=== PATIENT | female | born 1950 | race Hispanic/Latino ===

== ENCOUNTER 2022-04-22 09:43 | Emergency (ER) | payer MEDICARE ==
[~2022-04-22] VITALS: Ht 162.6 cm; Wt 107.0 kg
[~2022-04-22 09:43] MED LIST: SODIUM CHLORIDE 0.9% 1000ML 1,000 ML IV SCH
[2022-04-22] MEDS ORDERED: DIATRIZOATE MEGL/DIATRIZOA SOD 30 ML BTL PO ONE (10:25)
[2022-04-22 10:28] LABS: INR 0.94; PROTHROMBIN TIME 13.4 seconds (11.9-14.5)
[2022-04-22 10:33] LABS: CLARITY,URINE CLEAR (CLEAR); COLOR,URINE YELLOW (YELLOW)
[2022-04-22 10:34] LABS: KETONES,URINE NEGATIVE (NEGATIVE); LEUKOCYTE ESTERASE ,URINE NEGATIVE (NEGATIVE); NITRITE,URINE NEGATIVE (NEGATIVE); PROTEIN,URINE DIPSTICK NEGATIVE (NEGATIVE); URINE UROBILINOGEN 0.2 mg/dL (0.2 - 1)
[2022-04-22 10:38] LABS: BASOPHILS # (AUTO) 0.1 (0.0-0.1); BASOPHILS % 0.5 % (0.0-1.0); EOSINOPHILS # (AUTO) 0.2 (0.0-0.4); EOSINOPHILS % 1.5 % (0.0-6.0); HEMOGLOBIN 14.6 g/dL (12.0-16.0); LYMPHOCYTES # (AUTO) 3.7 (1.0-3.2); LYMPHOCYTES % 31.6 % (18.0-39.1); MEAN CORPUSCULAR HEMOGLOBIN 27.8 pg (28-32); MEAN CORPUSCULAR HGB CONC 31.1 g/dL (31-35); MEAN CORPUSCULAR VOLUME 89.4 fL (81-99); MONOCYTES # (AUTO) 0.8 (0.2-0.8); MONOCYTES % 6.8 % (4.4-11.3); NEUTROPHILS # (AUTO) 6.9 (2.1-6.9); NEUTROPHILS % 59.2 % (38.7-80.0); PLATELET COUNT 237 x10e3/uL (140-360); RED BLOOD COUNT 5.26 x10e6/uL (3.6-5.1); RED CELL DISTRIBUTION WIDTH 13.7 % (11.7-14.4)
[2022-04-22 10:39] LABS: ALBUMIN 4.2 g/dL (3.5-5.0); ALBUMIN/GLOBULIN RATIO 1.2 (0.8-2.0); ANION GAP 18.5 mmol/L (8-16); CALCIUM 9.8 mg/dL (8.4-10.2); CREATININE, SERUM 0.82 mg/dL (0.57-1.11); POTASSIUM 4.5 mmol/L (3.5-5.1)
[2022-04-22 11:04] LABS: BACTERIA,URINE MODERATE /HPF; EPITHELIAL CELLS,URINE MANY /LPF; RBC,URINE 0-5 /HPF (0-5); WBC,URINE (MAN) 0-5 /HPF (0-5)
[2022-04-22 11:11] LABS: YEAST,URINE FEW
[2022-04-22] MEDS ORDERED: DICYCLOMINE HCL20 MG PO (12:02)
[2022-04-22] MEDS ORDERED: MIRALAX17 GM PO (12:05)
[2022-04-22] MEDS ORDERED: ONDANSETRON ODT4 MG PO (12:05)
[2022-04-22] MEDS ORDERED: DOCUSATE SODIU100 MG PO (12:05)
[2022-04-22] MEDS ORDERED: DIFLUCAN150 MG PO (12:07)
[2022-04-22 12:33] VITALS: BP 120/69
== END 2022-04-22 12:20 | disposition home or self-care (01) ==
LOC: ER 09:51
DX: R10.30 Lower abdominal pain, unspecified (principal); K59.00 Constipation, unspecified; B37.89 Other sites of candidiasis; K64.9 Unspecified hemorrhoids; I10 Essential (primary) hypertension; E11.9 Type 2 diabetes mellitus without complications
CPT/HCPCS: 36415; 74176; 80053; 81001; 83690; 85025; 85610; 99284; Q9963

== ENCOUNTER → 2022-11-05 | Outpatient (CLI) | payer MEDICARE ==
[~2022-11-05] MED LIST changes: +DICYCLOMINE HCL20 MG PO; +DIFLUCAN150 MG PO; +DOCUSATE SODIU100 MG PO; +MIRALAX17 GM PO; +ONDANSETRON ODT4 MG PO; -SODIUM CHLORIDE 0.9% 1000ML 1,000 ML IV SCH
== END ==
LOC: MAMMO 09:47
PROVIDERS: ATTEND Family Medicine
DX: R92.8 Other abnormal and inconclusive findings on diagnostic imaging of breast (principal)

== ENCOUNTER → 2024-02-16 | Day surgery (SDC) | payer MEDICARE ==
[2024-02-10 15:26] LABS: BASOPHILS % 0.4 % (0.0-1.0); EOSINOPHILS # (AUTO) 0.1 (0.0-0.4); EOSINOPHILS % 1.2 % (0.0-6.0); HEMATOCRIT 44.5 % (34.2-44.1); LYMPHOCYTES # (AUTO) 2.9 (1.0-3.2); MEAN CORPUSCULAR HGB CONC 31.5 g/dL (31-35); MONOCYTES # (AUTO) 0.9 (0.2-0.8); MONOCYTES % 7.6 % (4.4-11.3); NEUTROPHILS # (AUTO) 7.2 (2.1-6.9); NEUTROPHILS % 64.4 % (38.7-80.0); PLATELET COUNT 211 x10e3/uL (140-360); RED CELL DISTRIBUTION WIDTH 14.2 % (11.7-14.4); WHITE BLOOD COUNT 11.21 x10e3/uL (4.8-10.8)
[2024-02-10 15:48] LABS: ANION GAP 14.5 mmol/L (8-16); CALCIUM 10.1 mg/dL (8.4-10.2); CREATININE, SERUM 0.93 mg/dL (0.57-1.11); POTASSIUM 4.5 mmol/L (3.5-5.1)
[~2024-02-16] MED LIST changes: +ACETAMINOPHEN 1000 MG/100 ML 100 ML IV ONE; +BENICAR HCT 201 EACH; +CRESTOR40 MG; +EPHEDRINE SULFATE INJ 50 MG/ML VIAL ONE; +FENTANYL CITRATE/PF 100MCG/2 ML INJ ONE; +GLYCOPYRROLATE INJ 0.2 MG/ML VIAL ONE; +JARDIANCE10 MG PO; +KETOROLAC TROMETHAMINE 30 MG/ML VIAL ONE; +LIDOCAINE HCL 2% LOCAL INJ 5 ML SDV VIAL INJ ONE; +METAMUCIL FIBE3.4 GM PO; +METOCLOPRAMIDE HCL 10 MG/2ML VIAL ONE; +MIDAZOLAM HCL 2 MG/2 ML VIAL ONE; +OMEGA 3 1,0001 EACH PO; +ONDANSETRON HCL INJ 2MG/ML 2ML 2 MG/ML VIAL ONE; +PROPOFOL IV EMULSION 10 MG/ML 20 ML VIAL ONE; +PROTONIX20 MG PO; +SEVOFLURANE INHAL SOLN 250 ML PEN BTL ONE; +TYLENOL325 MG PO; +VITAMIN D31 ML
[2024-02-16] MEDS: LACTATED RINGER'S 1,000 ML ONE (06:13)
[2024-02-16 09:00] VITALS: TEMP 98.5
[2024-02-16] MEDS: ACETAMINOPHEN 1000 MG/100 ML IV ONE (09:38)
[2024-02-16 09:50] VITALS: BP 113/61; PULSE 74; RESP 14; O2SAT 96
== END | disposition home or self-care (01) ==
LOC: OR 05:28
PROVIDERS: ATTEND Obstetrics & Gynecology
DX: N84.0 Polyp of corpus uteri (principal); R93.89 Abnormal findings on diagnostic imaging of other specified body structures; E11.9 Type 2 diabetes mellitus without complications; I10 Essential (primary) hypertension; E78.5 Hyperlipidemia, unspecified; K29.70 Gastritis, unspecified, without bleeding; M54.30 Sciatica, unspecified side; G89.29 Other chronic pain; Z01.810 Encounter for preprocedural cardiovascular examination; Z01.812 Encounter for preprocedural laboratory examination; Z01.818 Encounter for other preprocedural examination; Z79.899 Other long term (current) drug therapy
CPT/HCPCS: 36415; 58558; 71046; 80048; 85025; 88305; 93005; J0131; J1885; J2001; J2250; J2405; J2704; J2765; J3010; J7121

== ENCOUNTER 2024-07-27 13:55 | Emergency (ER) | payer MEDICARE ==
[~2024-07-27] VITALS: Ht 162.6 cm; Wt 104.3 kg
[~2024-07-27 13:55] MED LIST changes: -ACETAMINOPHEN 1000 MG/100 ML 100 ML IV ONE; -EPHEDRINE SULFATE INJ 50 MG/ML VIAL ONE; -FENTANYL CITRATE/PF 100MCG/2 ML INJ ONE; -GLYCOPYRROLATE INJ 0.2 MG/ML VIAL ONE; -KETOROLAC TROMETHAMINE 30 MG/ML VIAL ONE; -LIDOCAINE HCL 2% LOCAL INJ 5 ML SDV VIAL INJ ONE; -METOCLOPRAMIDE HCL 10 MG/2ML VIAL ONE; -MIDAZOLAM HCL 2 MG/2 ML VIAL ONE; -ONDANSETRON HCL INJ 2MG/ML 2ML 2 MG/ML VIAL ONE; -PROPOFOL IV EMULSION 10 MG/ML 20 ML VIAL ONE; -SEVOFLURANE INHAL SOLN 250 ML PEN BTL ONE
[2024-07-27 14:23] VITALS: PULSE 82; RESP 18; TEMP 98.3
[2024-07-27 15:31] LABS: BASOPHILS # (AUTO) 0.1 (0.0-0.1); BASOPHILS % 0.4 % (0.0-1.0); EOSINOPHILS # (AUTO) 0.1 (0.0-0.4); EOSINOPHILS % 0.4 % (0.0-6.0); HEMATOCRIT 49.1 % (34.2-44.1); HEMOGLOBIN 15.3 g/dL (12.0-16.0); LYMPHOCYTES % 17.3 % (18.0-39.1); MEAN CORPUSCULAR HGB CONC 31.2 g/dL (31-35); MEAN CORPUSCULAR VOLUME 89.9 fL (81-99); MONOCYTES # (AUTO) 0.8 (0.2-0.8); MONOCYTES % 7.2 % (4.4-11.3); NEUTROPHILS # (AUTO) 8.6 (2.1-6.9); NEUTROPHILS % 74.4 % (38.7-80.0); PLATELET COUNT 216 x10e3/uL (140-360); RED BLOOD COUNT 5.46 x10e6/uL (3.6-5.1); RED CELL DISTRIBUTION WIDTH 13.7 % (11.7-14.4)
[2024-07-27] MEDS: LIDOCAINE VISC 2% SOLN 15 ML UDC PO ONE (15:37)
[2024-07-27] MEDS: MAGNESIUM/ALUMINUM/SIMETHICONE 30 ML UDC PO ONE (15:37)
[2024-07-27] MEDS: BELLADONNA ALK/PHENOBARBITAL 5 ML UDC PO STA (15:38)
[2024-07-27] MEDS: ONDANSETRON HCL INJ 2MG/ML 2ML 2 MG/ML VIAL IV STA (15:38)
[2024-07-27 15:51] LABS: ALBUMIN 4.1 g/dL (3.5-5.0); ALBUMIN/GLOBULIN RATIO 1.1 (0.8-2.0); ANION GAP 18.8 mmol/L (8-16); BILIRUBIN,TOTAL 0.7 mg/dL (0.2-1.2); CALCIUM 10.1 mg/dL (8.4-10.2); CREATININE, SERUM 1.18 mg/dL (0.57-1.11); POTASSIUM 3.8 mmol/L (3.5-5.1); TOTAL PROTEIN 7.9 g/dL (6.5-8.1)
[2024-07-27 15:56] LABS: TROPONIN I 0.01 ng/mL (0-0.300)
[2024-07-27] MEDS: LACTATED RINGER'S 1,000 ML INJ ONE (16:37)
[2024-07-27] MEDS ORDERED: CARAFATE1 GM PO (16:56)
[2024-07-27 18:11] VITALS: BP 123/72; PULSE 84; RESP 18; TEMP 98.2; O2SAT 99
== END 2024-07-27 18:13 | disposition home or self-care (01) ==
LOC: ER 15:11
DX: R10.13 Epigastric pain (principal); K29.70 Gastritis, unspecified, without bleeding; I10 Essential (primary) hypertension; E11.65 Type 2 diabetes mellitus with hyperglycemia; E78.5 Hyperlipidemia, unspecified
CPT/HCPCS: 36415; 80053; 83690; 84484; 85025; 93005; 99284; J2405; J2470

== ENCOUNTER → 2024-08-18 | Day surgery (SDC) | payer MEDICARE ==
[2024-08-17 08:53] LABS: BASOPHILS # (AUTO) 0.1 (0.0-0.1); BASOPHILS % 0.7 % (0.0-1.0); EOSINOPHILS # (AUTO) 0.2 (0.0-0.4); EOSINOPHILS % 2.3 % (0.0-6.0); HEMATOCRIT 48.5 % (34.2-44.1); HEMOGLOBIN 14.7 g/dL (12.0-16.0); LYMPHOCYTES # (AUTO) 2.9 (1.0-3.2); LYMPHOCYTES % 28.1 % (18.0-39.1); MEAN CORPUSCULAR HEMOGLOBIN 27.9 pg (28-32); MEAN CORPUSCULAR HGB CONC 30.3 g/dL (31-35); MEAN CORPUSCULAR VOLUME 92.2 fL (81-99); MONOCYTES # (AUTO) 0.7 (0.2-0.8); MONOCYTES % 6.6 % (4.4-11.3); NEUTROPHILS # (AUTO) 6.3 (2.1-6.9); PLATELET COUNT 199 x10e3/uL (140-360); RED BLOOD COUNT 5.26 x10e6/uL (3.6-5.1); RED CELL DISTRIBUTION WIDTH 13.9 % (11.7-14.4)
[~2024-08-18] MED LIST changes: +CARAFATE1 GM PO; +HYOSCYAMINE SULFATE 0.5 MG/ML INJ ONE; +LACTATED RINGER'S 1,000 ML ONE; +LIDOCAINE HCL 2% LOCAL INJ 5 ML SDV VIAL INJ ONE; +METOCLOPRAMIDE HCL 10 MG/2ML VIAL ONE; +PHENYLEPHRINE HCL 1% 10 MG/ML VIAL ONE; +PROPOFOL IV EMULSION 10 MG/ML 20 ML VIAL ONE; +PROPOFOL IV EMULSION 50 ML IV ONE
[2024-08-18 07:53] VITALS: TEMP 97.1
[2024-08-18 08:20] VITALS: BP 117/68; PULSE 54; RESP 16; O2SAT 98
== END | disposition home or self-care (01) ==
LOC: OR 05:10
PROVIDERS: ATTEND Internal Medicine Gastroenterology
DX: K29.70 Gastritis, unspecified, without bleeding (principal); D12.2 Benign neoplasm of ascending colon; D12.3 Benign neoplasm of transverse colon; K20.90 Esophagitis, unspecified without bleeding; K21.9 Gastro-esophageal reflux disease without esophagitis; K59.09 Other constipation; K57.30 Diverticulosis of large intestine without perforation or abscess without bleeding; K64.8 Other hemorrhoids; Z71.3 Dietary counseling and surveillance; E11.9 Type 2 diabetes mellitus without complications; I10 Essential (primary) hypertension; E78.5 Hyperlipidemia, unspecified; R39.11 Hesitancy of micturition; Z01.812 Encounter for preprocedural laboratory examination; Z79.84 Long term (current) use of oral hypoglycemic drugs; Z79.899 Other long term (current) drug therapy; Z68.35 Body mass index [BMI] 35.0-35.9, adult; Z80.0 Family history of malignant neoplasm of digestive organs
CPT/HCPCS: 36415; 43239; 45380; 45385; 85025; J1980; J2003; J2371; J2470; J2704; J2765; J7121; 45378

== ENCOUNTER → 2024-09-29 | Outpatient (REF) | payer MEDICARE ==
[~2024-09-29] MED LIST changes: -HYOSCYAMINE SULFATE 0.5 MG/ML INJ ONE; +IOPAMIDOL 370 MG/ML 100 ML INFUS..BTL INJ ONE; -LACTATED RINGER'S 1,000 ML ONE; -LIDOCAINE HCL 2% LOCAL INJ 5 ML SDV VIAL INJ ONE; -METOCLOPRAMIDE HCL 10 MG/2ML VIAL ONE; -PHENYLEPHRINE HCL 1% 10 MG/ML VIAL ONE; -PROPOFOL IV EMULSION 10 MG/ML 20 ML VIAL ONE; -PROPOFOL IV EMULSION 50 ML IV ONE
[2024-09-29 08:48] LABS: CREATININE, SERUM 0.82 mg/dL (0.57-1.11)
== END ==
LOC: CT 07:31
PROVIDERS: ATTEND Urology
DX: R31.21 Asymptomatic microscopic hematuria (principal); D35.02 Benign neoplasm of left adrenal gland
CPT/HCPCS: 36415; 74178; 82565; 84520; Q9967

== ENCOUNTER 2024-11-22 01:09 | Emergency (ER) | payer MEDICARE ==
[~2024-11-22] VITALS: Ht 162.6 cm; Wt 97.5 kg
[~2024-11-22 01:09] MED LIST changes: -IOPAMIDOL 370 MG/ML 100 ML INFUS..BTL INJ ONE
[2024-11-22 01:35] VITALS: PULSE 67; RESP 17; TEMP 97.8
[2024-11-22] MEDS: ACETAMINOPHEN 325 MG TAB PO ONE (02:34)
[2024-11-22] MEDS ORDERED: ONDANSETRON ODT4 MG PO (03:42)
[2024-11-22] MEDS ORDERED: HYDROCODON-ACE1 EA11 PO (03:42)
[2024-11-22] MEDS: HYDROCODONE/APAP 5MG-325MG TAB PO ONE (03:49)
[2024-11-22] MEDS: ONDANSETRON HCL 4 MG ORAL DISINTEGRATING TAB PO ONE (03:49)
[2024-11-22 04:29] VITALS: BP 144/93; O2SAT 94
== END 2024-11-22 04:31 | disposition home or self-care (01) ==
LOC: ER 02:17
DX: M54.50 Low back pain, unspecified (principal); S32.010A Wedge compression fracture of first lumbar vertebra, initial encounter for closed fracture; S00.83XA Contusion of other part of head, initial encounter; M54.6 Pain in thoracic spine; W01.0XXA Fall on same level from slipping, tripping and stumbling without subsequent striking against object, initial encounter; Y93.01 Activity, walking, marching and hiking; Y92.89 Other specified places as the place of occurrence of the external cause; I10 Essential (primary) hypertension; E11.9 Type 2 diabetes mellitus without complications; E78.5 Hyperlipidemia, unspecified; Z87.19 Personal history of other diseases of the digestive system
CPT/HCPCS: 70450; 72125; 72128; 72131; 99283; Q0162

== ENCOUNTER → 2025-03-05 | Outpatient (REF) | payer MEDICARE ==
[~2025-03-05] MED LIST changes: +HYDROCODON-ACE1 EA11 PO
== END ==
LOC: MAMMO 13:03
PROVIDERS: ATTEND Specialist/Technologist, Other Surgical Technologist
DX: Z12.31 Encounter for screening mammogram for malignant neoplasm of breast (principal)
CPT/HCPCS: 77067